=== PATIENT | male | born 2000 | race Caucasian/White ===

== ENCOUNTER → 2022-05-05 10:52 | Outpatient (CLI) | payer SELFPAY ==
--- NOTE | 2022-05-05 11:01 | XR_ITS ---
FINAL REPORT CLINICAL HISTORY: Left lower quadrant pain COMPARISON: None FINDINGS: ABDOMEN SINGLE VIEW / KUB A single view of the abdomen was obtained with a coned down view of the pelvis. There is a nonspecific bowel gas pattern. There is no significant stool burden. There are no abnormally dilated loops of small bowel. No abnormal calcification is identified. IMPRESSION: No acute process. Reviewed, Interpreted and Dictated by Fuentes Pyle MD Transcribed by Yolanda Boles Authenticated and [facility]
== END ==
PROVIDERS: PCP Nurse Practitioner Family; Visit Provider Nurse Practitioner Family
DX: R10.32 Left lower quadrant pain (principal); R11.2 Nausea with vomiting, unspecified
CPT/HCPCS: 74018